=== PATIENT | female | born 1940 | race Caucasian/White ===

== ENCOUNTER 2020-10-16 11:59 | Inpatient (IN) | payer OTHER ==
[2020-10-16] VITALS (9 sets, daily range): BP systolic 107–233; BP diastolic 65–106
[~2020-10-16] VITALS: Ht 162.6 cm; Wt 77.4 kg
--- NOTE | 2020-10-16 12:33 | EKG ---
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 : 1940 Requested By: Reymundo Hargrove Order Number: [id number] MD: Augustine Fuller Measurements Intervals Mobile Rate: 68 P: 36 MS: 149 QRS: 35 QRSD: 98 T: 39 QT: 402 QTc: 428 Interpretive Statements Sinus rhythm Left atrial enlargement Low voltage, precordial leads ST elevation suggests acute pericarditis No previous ECG available for comparison Electronically Signed On 10-16-2020 12:33:18 PARAMEDIC INSTRUCTOR by Augustine Fuller [email or web address] <ELECTRONICALLY SIGNED> By: Augustine Fuller MD, [facility] 10/16/20 1233 1205 1205 Augustine Fuller MD, FACC /EPI
[2020-10-16 12:38] LABS: ABSOLUTE NEUTROPHILS 7.5 thou/uL (1.4-8.2); BASOPHILS 0.7 % (0.0-2.0); EOSINOPHILS 0.7 % (0.0-3.0); HEMATOCRIT 42.1 % (37.0-47.0); HEMOGLOBIN 14.2 gm/dL (12.0-15.0); LYMPHOCYTES 19.5 % (24.0-44.0); MCH 29.5 pg (26.0-34.0); MCHC 33.8 g/dL (28.0-37.0); MCV 87.2 fL (80.0-100.0); MONOCYTES 6.4 % (1.0-8.0); PLATELET COUNT 298 thou/uL (150-400); POLYS 72.7 % (36.0-66.0); RBC 4.83 mil/uL (4.20-5.00); WBC 10.4 thou/uL (4.0-11.0)
[2020-10-16] MEDS ORDERED: LISINOPRIL-HCT1 EAC1 PO (12:46)
[2020-10-16] MEDS ORDERED: BYSTOLIC 5 MG5 MG PO (12:46)
[2020-10-16 12:47] LABS: ANION GAP 9 mmol/L (7-16); BUN 11 mg/dL (7-18); CHLORIDE 97 mmol/L (98-107); CO2 28 mmol/L (21-32); CREATININE 0.9 mg/dL (0.6-1.0); GLUCOSE 356 mg/dL (74-106); POTASSIUM 4.2 mmol/L (3.5-5.1); SODIUM 134 mmol/L (136-145)
[2020-10-16] MEDS ORDERED: SUPER THERAVIT1 EACH PO (12:47)
[2020-10-16] MEDS ORDERED: TRESIBA FL100 UNIT/1 SUBQ (12:47)
[2020-10-16 12:55] LABS: TROPONIN-I <0.06 ng/mL (<0.06)
[2020-10-16 16:04] LABS: CHOLESTEROL 262 mg/dL (<200); HDL CHOLESTEROL 48 mg/dL (>40); LDL CHOLESTEROL 177 mg/dL (<100); TC:HDL 5.5 Ratio (Not establshd); TRIGLYCERIDE 187 mg/dL (<150); VLDL 37 mg/dL (<40)
[2020-10-16 18:12] LABS: FOLIC ACID 33.1 ng/mL (8.6-58.9)
--- NOTE | 2020-10-16 19:43 | NUR ---
PT. ARRIVED AT THE FLOOR AROUND 1800; PT. AOX4; NO C/O PAIN; EDUCATED ABOUT MANTAINING BED REST UNTIL 2029; ST. UNDERSTANDING; EDUCATED ABOUT HOLDING PRESSURE OVER R. GROIN SIDE IF COUGHING; ST. UNDERSTANDING; EDUCATED TO CALL IMMEDIATELY IF NOTICED SWELLING OR PAIN OVER R. GROIN SIDE; ST. UNDERSTANDING; SR ON THE MONITOR; ADMISSION PERFORMED; ASSESSMENT CHARGED; FOLLOWING POC; PASSED ON REPORT;
[2020-10-17 00:30] VITALS: BP 149/77
--- NOTE | 2020-10-17 03:53 | NUR ---
Assumed pt care at 1900. Pt is alert and oriented. No sign of distress note. Groin site intact. No sign of bruising or bleeding noted. Pt is off bedrest at 2030. Assesment completed and documented. Scheduled meds administered to pt. No acute events overnight. Continue to monitor. No further needs at this time.
[2020-10-17 04:15] VITALS: BP 119/96; BP 129/86
[2020-10-17 04:36] LABS: HEMATOCRIT 39.3 % (37.0-47.0); MCH 28.7 pg (26.0-34.0); MCHC 32.9 g/dL (28.0-37.0); MCV 87.1 fL (80.0-100.0); RBC 4.52 mil/uL (4.20-5.00); RDW 13.4 % (10.5-14.5); WBC 11.5 thou/uL (4.0-11.0)
[2020-10-17 04:41] LABS: CALCIUM 8.8 mg/dL (8.5-10.1); CREATININE 0.8 mg/dL (0.6-1.0); POTASSIUM 3.5 mmol/L (3.5-5.1)
[2020-10-17 08:00] VITALS: BP 152/70
--- NOTE | 2020-10-17 10:44 | 2DMMODE ---
[facility] [place] [address] 2 D/M-MODE ECHOCARDIOGRAM Name: TAE LEVIN Room #: 213-P ADM IN M.R.#: [id number] Admission: 10/16/20 Attend Phys: Michel Perez MD Discharge: Date of : 44 Report #: [id number] THIS REPORT FOR: cc: Max Dubon MD, James A. MD Park, Jin S. MD ~ APPROVED REPORT Study performed: 10/17/2020 08:16:27 EXAM: Comprehensive 2D, Doppler, and color-flow Echocardiogram Patient Location: Bedside Room #: 213 Status: on-call BSA: 1.83 HR: 64 bpm BP: 152/70 mmHg Rhythm: NSR Other Information Study Quality: Adequate Indications Diabetes Non STEMI Chest Pain Hypertension/HDD HLD Echo Enhancing Agent Indication: Rule out Shunt Agent(s) / Amount(s) Used: Agitated Saline 6 cc 2D Dimensions RVDd: 29.93 mm IVSd: 10.93 (7-11mm) LVOT Diam: 20.55 (18-24mm) LVDd: 34.02 mm PWd: 11.45 (7-11mm) Ascending Ao: 29.44 (22-36mm) LVDs: 21.67 (25-40mm) Aortic Root: 28.40 mm IVC: 13.00 mm Volumes Left Atrial Volume (Systole) Single Plane 4CH: 84.79 mL Single Plane 2CH: 54.18 mL [facility] [employer] [place] [address] 2 D/M-MODE ECHOCARDIOGRAM Name: TAE LEVIN Room #: 213-P [facility] IN ..#: [id number] Admission: 10/16/20 Attend Phys: Michel Perez MD Discharge: Date of : 44 Report #: [id number] ESV Index: 39.00 mL/m2 Aortic Valve AoV Peak Eric.: 2.33 m/s AO Peak Gr.: 21.64 mmHg LVOT Max P.97 mmHg AO Mean Gr.: 9.24 mmHg LVOT Mean P.34 mmHg AO V2 Mean: 1.37 m/s LVOT Max V: 1.32 m/s AO V2 VTI: 43.11 cm LVOT Mean V: 0.67 m/s OLIVE (VTI): 2.62 cm2 LVOT V1 VTI: 34.10 cm OLIVE Vmax: 1.89 cm2 SV (LVOT): 112.99 mL Mitral Valve E/A Ratio: 0.8 MV Decel. Time: 270.03 ms MV E Max Eric.: 0.91 m/s MV A Eric.: 1.09 m/s MV PHT: 78.31 ms IVRT: 96.89 ms Pulmonary Valve PV Peak Eric.: 0.86 m/s PV Peak Gr.: 2.97 mmHg Pulmonary Vein P Vein S: 0.54 m/s P Vein A: 0.39 m/s P Vein D: 0.38 m/s P Vein A Dur.: 106.1 msec P Vein S/D Ratio: 1.42 Tricuspid Valve TR Peak Eric.: 2.59 m/s RAP Estimate: 5.00 mmHg TR Peak Gr.: 26.73 mmHg PA Pressure: 32.00 mmHg Left Ventricle The left ventricle is normal size. There is normal LV segmental wall motion. Borderline concentric left ventricular hypertrophy. The left ventricular systolic function is normal. The left ventricular ejection fraction is within the normal range. LVEF is 65%. Mild diastolic dysfunction is present (impaired relaxation pattern). Right Ventricle The right ventricle is normal size. The right ventricular systolic function is normal. [facility] [address] [place] [address] 2 D/M-MODE ECHOCARDIOGRAM Name: TAE LEVIN Room #: 213-P [facility] [place] IN .R.#: [id number] Admission: 10/16/20 Attend Phys: Michel Perez MD Discharge: Date of : 44 Report #: [id number] Left atrium is mildly dilated. Injection of bubbles documented no interatrial shunt. The right atrium size is normal. Aortic Valve Aortic valve is mildly calcified. No aortic regurgitation is present. There is no aortic valvular stenosis. Mitral Valve The mitral valve is normal in structure. Trace mitral regurgitation. No evidence of mitral valve stenosis. Tricuspid Valve The tricuspid valve is normal in structure. Trace tricuspid regurgitation. PAP is estimated at 32 mmHg. Pulmonic Valve Pulmonic valve is not well visualized. Mild pulmonic regurgitation. Great Vessels The aortic root is normal in size. IVC is normal in size and collapses >50% with inspiration. Pericardium There is no pericardial effusion. <Conclusion> The left ventricle is normal size. The left ventricular systolic function is normal. Mild diastolic dysfunction is present (impaired relaxation pattern). The right ventricle is normal size. Injection of bubbles documented no interatrial shunt. Left atrium is mildly dilated. Aortic valve is mildly calcified. Trace mitral regurgitation. Trace tricuspid regurgitation. PAP is estimated at 32 mmHg. <ELECTRONICALLY SIGNED> By: Barrington Garcia MD 10/17/20 1044 1044 1044 Barrington Garcia MD /INF
[2020-10-17 12:00] VITALS: BP 154/70
[2020-10-17 16:00] VITALS: BP 137/66
--- NOTE | 2020-10-17 17:54 | NUR ---
RECEIVED PT'S CARE AROUND 0735; PT. ALERT; SR ON THE MONITOR; DURING AM ASSESSMENT PT. AOX4; AM MEDICATIONS GIVEN; EDUCATED ABOUT AM NEW MEDICATIONS; ST. UNDERSTANDING; REQUESTED TO KNOW TIME MIGHT GO HOME; EDUCATED ABOUT D/C PROCESS; EDUCATED ABOUT FROM CARDIOLOGY STAND POINT CLEAR, BUT HOSPITALIST NEEDS TO AGREE; ST. UNDERSTANDING; PER DR. ALEXANDRA PT. BG HIGH; MONITORING; NO D/C TODAY, 10/17/2020,; PT. NOTIFIED BY PHYSICIAN; PT. ST. UNDERSTANDING; SR ON THE MONITOR; BG ON THE 300s DURING THE AFTERNOON; PHYSICIAN NOTIFIED; ORDERS ON PLACED; NO C/O PAIN THROUGH THE DAY; ABLE TO AMBULATE WITHOUT ASSISSTANCE; ASSESSMENT CHARGED; FOLLOWING POC; WILL PASS ON REPORT;
[2020-10-17 20:58] VITALS: BP 98/56
[2020-10-18 04:45] VITALS: BP 149/83; BP 161/79
--- NOTE | 2020-10-18 07:51 | NUR ---
ASSUME CARE 1900. PT/VITALS STABLE. DENIES ANY PAIN. GOOD ENDURANCE TO ACTIVITY. ASSESSMENT CHARTED. PROGRESSING WELL WITH POC. NO DISTRESS NOTED. RIGHT GROIN SITE CDI/ WITH NO ABNORMALITIES INDICATED ON RIGHT LEG. PLAN IS POSSIBLE DISCHARGE TODAY. WILL CONTINUE TO MONITOR AND FOLLOW WITH POC
[2020-10-18 08:22] VITALS: BP 189/75
--- NOTE | 2020-10-18 11:08 | NUR ---
ASSUMED CARE AT CHANGE OF SHIFT.ALERTX4, DENIES PAIN, DENIES SOB, SR ON TELE. ELEVATED BP TREATED WITH NEW ORDERS PER DR BAÑUELOS. EDUCATION PROVIDE ON POST CATH CARE. GIVEN REHAB BOOKLET AND REVIED CATH SIGHT CARE, REVIEWED NEW MEDICATION. DR ALEXANDRA SPOKE TO PATIENT ABOUT FOLLOWING UP REGARDING DM2 INCLUDING INSULIN AND ORAL DIABETIC MEDICATION AND CHECKING BLOOD SUGARE 2X DAILY AND KEEPING A RECORD TO REPORT TO HER PCP. PT TO FOLLOW UP WITH CARDIOLOGY PER SET APPOINTMENT. IV AND TELE REMOVED. HOME WITH SELF CARE.
[2020-10-18] MEDS ORDERED: BENICAR40 MG PO (11:18)
[2020-10-18] MEDS ORDERED: LIPITOR40 MG PO (11:18)
[2020-10-18] MEDS ORDERED: EFFIENT10 MG PO (11:18)
[2020-10-18] MEDS ORDERED: BYSTOLIC10 MG PO (11:18)
[2020-10-18] MEDS ORDERED: ASPIRIN325 PO (11:23)
[2020-10-18] MEDS ORDERED: GLUCOPHAGE1000 MG PO (11:23)
[2020-10-18] MEDS ORDERED: TRADJENTA5 MG PO (11:24)
[2020-10-18] MEDS ORDERED: TRESIBA FL100 UNIT/1 SUBQ (11:24)
[2020-10-18 11:27] VITALS: BP 187/83
--- NOTE | 2020-10-19 07:35 | EKG ---
[address] [place] [address] ELECTROCARDIOGRAM REPORT Name: TAE LEVIN Room #: 213-P [facility] IN ..#: [id number] Admission: 10/16/20 Attend Phys: Michel Perez MD Discharge: 10/18/20 Date of : 44 Report #: [id number] [facility] ED Test Date: 2020-10-16 Test Time: 15:22:10 Pat Name: TAE LEVIN Department: Room: 213 Gender: F Inspector Canned Food Reconditioning: patrica : 1940 Requested By: Reymundo Hargrove Order Number: [id number] MD: Sergio Hernández Measurements Intervals [place] Rate: 56 P: 30 RI: 140 QRS: 33 QRSD: 108 T: 35 QT: 453 QTc: 438 Interpretive Statements Sinus bradycardia RSR' in V1 or V2, right VCD Compared to ECG 10/16/2020 12:05:15 Right ventricular hypertrophy now present No significant changes found Electronically Signed On 10-19-2020 7:35:10 GREETING CARD EDITOR by Sergio Hernández [email or web address] <ELECTRONICALLY SIGNED> By: Sergio Hernández MD, [facility] 10/19/20 0735 1522 1522 Sergio Hernández MD, [facility] /EPI
--- NOTE | 2020-10-19 07:40 | EKG ---
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 : 1940 Requested By: Italo Ball Order Number: [id number] MD: Sergio Hernández Measurements Intervals [place] Rate: 63 P: 56 MI: 142 QRS: 64 QRSD: 110 T: 27 QT: 451 QTc: 462 Interpretive Statements Sinus rhythm Otherwise normal tracing Compared to ECG 10/16/2020 15:22:10 No significant change was found Electronically Signed On 10-19-2020 7:40:46 WASTE ELIMINATION by Sergio Hernández [email or web address] <ELECTRONICALLY SIGNED> By: Sergio Hernández MD, [facility] 10/19/20 0740 7 7 Sergio Hernández MD, [facility] /EPI
--- NOTE | 2020-10-19 10:45 | CATHLAB ---
[facility] [place] [address] INVASIVE PROCEDURE REPORT Name: TAE LEVIN Room #: 213-P [facility] IN M.R.#: [id number] Admission: 10/16/20 Attend Phys: Michel Perez MD Discharge: 10/18/20 Date of : 44 Report #: [id number] THIS REPORT FOR: cc: Max Dubon MD, James A. MD Mancuso, Gerald M. MD [facility] ~ APPROVED REPORT Study performed: 10/16/2020 16:08:32 Patient Details Patient Status: ED Room #: The patient is a 79 year-old female Event Personnel Italo Ball Reel Worker, Ortiz Garcia RN, Maria Luz Izquierdo RTR Scrub, Aimee Strickland RTR, RESEARCH STATISTICIAN Monitor Procedures Performed Art Access - R femoral artery* Left Heart Cath w/or w/o Coronaries [id number] [facility] Aortogram Abdominal Peripheral Angio 364385 ASA Place w/[place] [address] Initial Mod Sed Same Phys/QHP Gr5y 532033 10159 Mod Sed Same Phys/QHP Ea 752370 Indication Chest pain Procedure Narrative The Right Groin^ was infiltrated with 1% Lidocaine subcutaneous anesthesia. A PINNACLE 6FR Sheath #[id number] sheath was inserted into the RFA. Coronary angiography was performed using coronary diagnostic catheters. The right coronary system was accessed and visualized with a JR4 catheter. The left coronary system was accessed and visualized with a JL4 catheter. The left ventricle was accessed and visualized with a ANGLED PIGTAIL catheter. Left ventriculogram was performed in 30 degree projection. An aortogram of the abdominal aorta was performed. Closure device was deployed with a 6 Fr MYNXGRIP 6/7F #[id number]. The patient tolerated the procedure well and there were no complications associated with the procedure. There was no hematoma. Intraoperative Conscious Sedation Sedation start time: 16:26 Case end Time: 17:21 [facility] [address] [place] [address] INVASIVE PROCEDURE REPORT Name: TAE LEVIN Room #: 213-P [facility]#: [id number] Admission: 10/16/20 Attend Phys: Michel Perez MD Discharge: 10/18/20 Date of : 44 Report #: [id number] Fentanyl 50 mcg Versed 2 mg Fluoro Time: 7.41 minutes Dose: DAP 7042.90 cGycm2 899 mGy Contrast Type and Amount: Visipaque 175 ml Hemodynamics The aortic pressure is 173/68 mmHg with a mean of 109 mmHg. The left ventricular pressure is 168/4 mmHg with a mean of mmHg. The left ventricular end diastolic pressure is 11 mmHg. PCI Technique Lesion Percutaneous coronary intervention was performed on the first obtuse marginal branch segment. A LAUNCHER 6FR EBU 3.5 #[id number] Guide Catheter was used to engage the ostium. A Luge Wire .014 x 182CM #[id number] Interventional Guidewire was used to cross the lesion. BALLOON DILATION A Balloon catheter Sprinter OTW 2.25 x 12 #[id number] was inserted and inflated up to 5.00atm for 19seconds. Additional Inflation: 8.00atm for 23seconds. Additional Inflation: 8.00atm for 23seconds. Additional Inflation: 12 harsha for 45 seconds STENT DEPLOYMENT A drug-eluting stent RESOLUTE DIONISIO OTW 2.5 X 12 #[id number] was inserted and inflated up to 12.00atm for 30seconds. Additional Inflation: 14.00atm for 16seconds. Conclusion #1. Successful PTCA stent of a high-grade mid circumflex OM stenosis placement of a 2.5 x 12 resolute Dionisio stent AWILDA grade III flow 0% residual. #2 left main with mild disease giving rise to the LAD and circumflex. #3 LAD moderately disease extends to the apex no high-grade occlusive disease. #4 dominant right coronary with mild disease proximal calcification is noted no high-grade occlusive anatomically dominant. #5 normal left jugular size ejection fraction is normal there is subtle inferior lateral hypokinesis. #6 abdominal aortic gram revealing mild aortic ectasia and tortuosity but no aneurysm or occlusive disease. Recommendations and plan: Continue aggressive risk factor modification. Dual antiplatelet therapy has been initiated. Patient [address] [address] INVASIVE PROCEDURE REPORT Name: TAE LEVIN Room #: 213-P [facility] IN M.R.#: [id number] Admission: 10/16/20 Attend Phys: Michel Perez MD Discharge: 10/18/20 Date of : 44 Report #: [id number] with extremely poor blood sugar control will need further evaluation and therapy for diabetes. Transfer to CCU and stable condition. Follow post coronary stent protocol. <ELECTRONICALLY SIGNED> By: Italo Ball MD, FACC 10/19/20 1045 1045 1045 Italo Ball MD, FACC /INF
== END 2020-10-18 12:00 | disposition home or self-care (01) | DRG 247 ==
LOC: ER 11:59 → EROBS 16:02 → 2N 16:02
PROVIDERS: Internal Medicine Cardiovascular Disease; Nurse Practitioner; ADMIT Hospitalist; ATTEND Hospitalist
PROC: 4A023N7 Measurement of Cardiac Sampling and Pressure, Left Heart, Percutaneous Approach (ICD-10-PCS; principal; 2020-10-16)
PROC: B215YZZ Fluoroscopy of Left Heart using Other Contrast (ICD-10-PCS; principal; 2020-10-16)
PROC: B211YZZ Fluoroscopy of Multiple Coronary Arteries using Other Contrast (ICD-10-PCS; principal; 2020-10-16)
PROC: B410YZZ Fluoroscopy of Abdominal Aorta using Other Contrast (ICD-10-PCS; principal; 2020-10-16)
PROC: 027034Z Dilation of Coronary Artery, One Artery with Drug-eluting Intraluminal Device, Percutaneous Approach (ICD-10-PCS; principal; 2020-10-16)
DX: I21.4 Non-ST elevation (NSTEMI) myocardial infarction (principal); E87.1 Hypo-osmolality and hyponatremia; D68.69 Other thrombophilia; I16.0 Hypertensive urgency; E78.5 Hyperlipidemia, unspecified; I10 Essential (primary) hypertension; E11.9 Type 2 diabetes mellitus without complications; I65.23 Occlusion and stenosis of bilateral carotid arteries; I08.3 Combined rheumatic disorders of mitral, aortic and tricuspid valves; E03.9 Hypothyroidism, unspecified; E66.9 Obesity, unspecified; Z79.4 Long term (current) use of insulin; Z79.899 Other long term (current) drug therapy; Z87.891 Personal history of nicotine dependence; Z68.29 Body mass index [BMI] 29.0-29.9, adult
CPT/HCPCS: 10081